=== PATIENT | male | born 2000 ===

== ENCOUNTER 2022-02-06 01:13 | Emergency (ER) | payer SELFPAY ==
[~2022-02-06] VITALS: Ht 172.7 cm; Wt 80.0 kg
[2022-02-06 01:15] VITALS: BP 130/67
== END 2022-02-06 02:34 | disposition home or self-care (01) ==
LOC: ER 01:13
DX: F10.129 Alcohol abuse with intoxication, unspecified (principal); Y90.9 Presence of alcohol in blood, level not specified
CPT/HCPCS: 82962; 99283